=== PATIENT | male | born 1970 | race Caucasian/White ===

== ENCOUNTER 2016-04-19 08:53 | Emergency (ER) | payer BC ==
[~2016-04-19] VITALS: Ht 182.9 cm; Wt 120.5 kg
[~2016-04-19 08:53] MED LIST: INDOCIN25 MG PO; NOHOMEMEDS; VIBRAMYCIN100 MG PO; ZITHROMAX500 MG
[2016-04-19 09:51] LABS: ADD MIUA? NO; BILIRUBIN NEGATIVE; BLOOD NEGATIVE; GLUCOSE (STRIP) >=1000; KETONES NEGATIVE; LEUKOCYTES NEGATIVE; NITRITE NEGATIVE; PROTEIN (STRIP) NEGATIVE; SPECIFIC GRAVITY 1.033 (1.000-1.030); UCUL ADDED? NO; UROBILINOGEN 0.2 MG/DL (0.2-1.0)
[2016-04-19 09:52] LABS: COLOR LT YELLOW ((YELLOW))
[2016-04-19 10:18] LABS: BASOPHIL COUNT 0.1 K/uL (0-0.1); EOSINOPHIL (%) 2.5 % (0-5); EOSINOPHIL COUNT 0.2 K/uL (0-0.3); HEMATOCRIT 38.3 % (38.0-50.0); IMMATURE GRANULOCYTE (%) 0.2 % (0.0-0.7); IMMATURE GRANULOCYTE COUNT 0.2 K/uL; LYMPHOCYTE COUNT 1.9 K/uL (1.0-2.8); MCH 29.2 PG (29.0-34.0); MCHC 35.2 G/DL (30.0-36.0); MCV 82.9 FL (86-99); MEAN PLAT.VOLUME 8.7 uM^3 (9.0-12.4); MONOCYTE (%) 7.8 % (3-12); MONOCYTE COUNT 0.7 K/uL (0-0.8); NEUTROPHIL (%) 66.8 % (45-76); NEUTROPHIL COUNT 5.8 K/uL (1.8-6.4); PLATELET COUNT 276 K/uL (156-360); RBC DIS.WIDTH-CV 12.6 % (11.8-14.6); RBC DIS.WIDTH-SD 37.5 % (39-53); RED BLOOD COUNT 4.62 M/uL (4.00-5.50); WHITE BLOOD COUNT 8.6 K/uL (4.1-10.2)
[2016-04-19 10:30] LABS: CHLORIDE 101 mEq/L (99-109); POTASSIUM 4.2 mEq/L (3.7-5.4); SODIUM 133 mEq/L (136-147)
[2016-04-19 10:32] LABS: GLUCOSE 404 mg/dL (70-99)
[2016-04-19 10:33] LABS: ANION GAP 7 MEQ/L (2-14)
[2016-04-19 10:35] LABS: GFR ESTIMATE (CALCULATED) > 59 mL/min/
[2016-04-19 10:36] LABS: UREA NITROGEN (BUN) 9 mg/dL (9-23)
[2016-04-19] MEDS ORDERED: ZITHROMAX Z-PA250 MG PO (11:43)
[2016-04-19 12:08] VITALS: BP 158/68
== END 2016-04-19 12:08 | disposition home or self-care (01) ==
LOC: EME 08:53
PROVIDERS: Emergency Medicine
DX: J40 Bronchitis, not specified as acute or chronic (principal); R73.9 Hyperglycemia, unspecified; Z88.1 Allergy status to other antibiotic agents
CPT/HCPCS: 71020; 80048; 81003; 85025; 99281; 99284

== ENCOUNTER 2016-09-21 12:01 | Emergency (ER) | payer BC ==
[~2016-09-21] VITALS: Ht 185.4 cm; Wt 111.8 kg
[~2016-09-21 12:01] MED LIST changes: +ZITHROMAX Z-PA250 MG PO
[2016-09-21 12:19] LABS: POINT-OF-CARE METER ID UU13113778
[2016-09-21 13:33] LABS: HEMATOCRIT 43.4 % (38.0-50.0); MCHC 34.1 G/DL (30.0-36.0); MCV 84.9 FL (86-99); MEAN PLAT.VOLUME 8.5 uM^3 (9.0-12.4); PLATELET COUNT 304 K/uL (156-360); RBC DIS.WIDTH-CV 12.5 % (11.8-14.6); RBC DIS.WIDTH-SD 39.1 % (39-53); RED BLOOD COUNT 5.11 M/uL (4.00-5.50)
[2016-09-21 13:42] LABS: CHLORIDE 107 mEq/L (99-109); POTASSIUM 4.2 mEq/L (3.7-5.4); SODIUM 137 mEq/L (136-147)
[2016-09-21 13:44] LABS: GLUCOSE 103 mg/dL (70-99)
[2016-09-21 13:45] LABS: ADD MIUA? NO; BILIRUBIN NEGATIVE; BLOOD NEGATIVE; COLOR YELLOW ((YELLOW)); GLUCOSE (STRIP) NEGATIVE; KETONES NEGATIVE; LEUKOCYTES NEGATIVE; NITRITE NEGATIVE; PROTEIN (STRIP) NEGATIVE; SPECIFIC GRAVITY 1.017 (1.000-1.030); UROBILINOGEN 0.2 MG/DL (0.2-1.0)
[2016-09-21 13:46] LABS: ANION GAP 7 MEQ/L (2-14)
[2016-09-21 13:48] LABS: GFR ESTIMATE (CALCULATED) > 59 mL/min/
[2016-09-21 13:49] LABS: UREA NITROGEN (BUN) 13 mg/dL (9-23)
[2016-09-21 16:35] VITALS: BP 137/89
[2016-09-23 09:53] LABS: LYME DISEASE SEROLOGY SCREEN NEGATIVE (NEGATIVE)
== END 2016-09-21 16:36 | disposition home or self-care (01) ==
LOC: EME 12:01
PROVIDERS: Physician Assistant Medical
DX: R53.83 Other fatigue (principal); E11.9 Type 2 diabetes mellitus without complications; Z79.84 Long term (current) use of oral hypoglycemic drugs
CPT/HCPCS: 80048; 81003; 82948; 84443; 85027; 86618; 93005; 99281; 99283

== ENCOUNTER 2017-01-07 15:55 | Emergency (ER) | payer BC ==
[~2017-01-07] VITALS: Ht 182.9 cm; Wt 109.5 kg
[2017-01-07 16:15] LABS: POINT-OF-CARE METER ID UU13113778
[2017-01-07 17:57] LABS: CHLORIDE 105 mEq/L (99-109); POTASSIUM 3.8 mEq/L (3.7-5.4); SODIUM 139 mEq/L (136-147)
[2017-01-07 17:59] LABS: GLUCOSE 106 mg/dL (70-99)
[2017-01-07 18:00] LABS: ANION GAP 8 MEQ/L (2-14)
[2017-01-07 18:02] LABS: GFR ESTIMATE (CALCULATED) > 59 mL/min/
[2017-01-07 18:03] LABS: UREA NITROGEN (BUN) 14 mg/dL (9-23)
[2017-01-07 18:53] VITALS: BP 179/92
== END 2017-01-07 18:54 | disposition home or self-care (01) ==
LOC: EME 15:55
PROVIDERS: Emergency Medicine
DX: E11.9 Type 2 diabetes mellitus without complications (principal); R11.0 Nausea; R14.0 Abdominal distension (gaseous); Z79.84 Long term (current) use of oral hypoglycemic drugs
CPT/HCPCS: 80048; 82948; 99281; 99284